=== PATIENT | male | born 1990 | race African-American/Black ===

== ENCOUNTER 2018-02-25 23:41 | Emergency (ER) | payer OTHER, SELFPAY ==
[2018-02-26] MEDS ORDERED: Lidocaine 1% 20 ML MDV ONE (00:28)
== END 2018-02-26 01:00 | disposition home or self-care (01) ==
LOC: SCSER 23:41
DX: N49.2 Inflammatory disorders of scrotum (principal)
CPT/HCPCS: 10060; 54700; J2001

== ENCOUNTER 2018-04-02 20:50 | Emergency (ER) | payer SELFPAY ==
[2018-04-02] MEDS ORDERED: Ibuprofen 600 MG TAB ONE (21:04)
--- NOTE | 2018-04-02 21:40 | RAD ---
RIGHT HAND THREE VIEWS: INDICATIONS: Right hand injury. COMPARISON: None. FINDINGS: No acute fracture or subluxation is evident. IMPRESSION: No acute osseous abnormality. POS: [facility]
== END 2018-04-02 21:42 | disposition home or self-care (01) ==
LOC: SCSER 20:50
DX: S63.601A Unspecified sprain of right thumb, initial encounter (principal); X50.1XXA Overexertion from prolonged static or awkward postures, initial encounter; Y93.71 Activity, boxing
CPT/HCPCS: 29125

== ENCOUNTER 2018-04-05 16:52 | Emergency (ER) | payer SELFPAY ==
[2018-04-05 17:41] LABS: Bilirubin Negative (Negative); Blood, Urine Negative (Negative); Clarity Cloudy (Clear); Glucose, Urine (Dipstick) Negative (Negative); Leukocyte Negative (Negative); Nitrite Negative (Negative); Protein, Urine (Dipstick) Negative (Neg-Trace)
[2018-04-05] MEDS ORDERED: Azithromycin 250 MG TAB ONE (18:01)
[2018-04-05] MEDS ORDERED: Lidocaine 1% PF 5 ML VIAL ONE (18:01)
[2018-04-05] MEDS ORDERED: cefTRIAXone\\ROCEPHIN 250 MG VIAL ONE (18:01)
[2018-04-05] MEDS ORDERED: metroNIDAZOLE 500 MG TAB ONE (18:01)
[2018-04-07 09:00] LABS: Chlamydia by PCR Not Detected (NotDetected); GC by PCR Not Detected (NotDetected)
== END 2018-04-05 18:28 | disposition home or self-care (01) ==
LOC: SCSER 16:52
DX: N34.2 Other urethritis (principal)
CPT/HCPCS: 81003; 87491; 87591; 96372; J0696; J2001

== ENCOUNTER 2018-07-06 09:12 | Emergency (ER) | payer SELFPAY ==
[2018-07-06] MEDS ORDERED: Azithromycin 250 MG TAB ONE (09:33)
[2018-07-06] MEDS ORDERED: cefTRIAXone\\ROCEPHIN 1 GM VIAL ONE (09:34)
[2018-07-06] MEDS ORDERED: Lidocaine 1% PF 5 ML VIAL ONE (09:34)
[2018-07-06] MEDS ORDERED: cefTRIAXone\\ROCEPHIN 250 MG VIAL ONE (09:36)
[2018-07-06 09:52] LABS: Bilirubin Negative (Negative); Blood, Urine Trace (Negative); Glucose, Urine (Dipstick) Negative (Negative); Leukocyte Trace (Negative); Nitrite Negative (Negative); Protein, Urine (Dipstick) Trace mg/dL (Neg-Trace); Urobilinogen 0.2 mg/dL (0.2-1.0)
[2018-07-06 09:56] LABS: Clarity Hazy (Clear)
[2018-07-06 09:57] LABS: RBC/HPF 0-3 HPF (0-3)
[2018-07-06 09:58] LABS: Bacteria/HPF None Seen HPF (None Seen); Squamous Epithelial None Seen HPF (0-3)
[2018-07-07 21:24] LABS: Chlamydia by PCR DETECTED (NotDetected); GC by PCR Not Detected (NotDetected)
== END 2018-07-06 09:55 | disposition home or self-care (01) ==
LOC: SCSER 09:12
DX: N34.2 Other urethritis (principal)
CPT/HCPCS: 81003; 81015; 87491; 87591; 96372; J0696; J2001